=== PATIENT | male | born 1960 | race African-American/Black ===

== ENCOUNTER 2017-12-09 17:33 | Inpatient (IN) | payer MEDICAID ==
[~2017-12-09] VITALS: Ht 182.9 cm; Wt 123.8 kg
[2017-12-09] VITALS (17 sets, daily range): BP systolic 48–113; BP diastolic 23–91
[~2017-12-09 17:33] MED LIST: SODIUM BICARBONATE 7.5% 0.9 MEQ/ML 50ML SYR IV ONE
[2017-12-09] MEDS ORDERED: INSULIN LISPRO 100 UNITS/ML SUBCUT ONE (17:47)
[2017-12-09] MEDS ORDERED: PROPOFOL 10MG/ML 100ML 100 ML IV SCH (18:15)
[2017-12-09] MEDS ORDERED: INSULIN REGULAR (HUMULIN R) UD 100 UNITS/ML SYR IV ONE (18:30)
[2017-12-09] MEDS ORDERED: SODIUM CHLORIDE 0.9% 1000ML BAG (SEPSIS BOLUS) IV ONE (18:30)
[2017-12-09] MEDS ORDERED: SODIUM BICARBONATE 8.4% 1 MEQ/ML 50ML SYR IV ONE (18:30)
[2017-12-09 18:33] LABS: HEMATOCRIT. 57.1 % (42.0-52.0); HEMOGLOBIN. 16.3 g/dL (14.0-18.0); MEAN CORPUSCULAR HEMOGLOBIN 31.2 pg (28.0-32.0); MEAN CORPUSCULAR VOLUME 109.5 fL (80.0-94.0); MEAN PLATELET VOLUME 10.8 fl (7.4-10.4); PLATELET 228 x1000/uL (130-400); RED BLOOD CELL COUNT 5.21 mill/uL (4.7-6.1); RED CELL DISTRIBUTION WIDTH 14.1 % (11.6-14.6)
[2017-12-09 18:35] LABS: CLARITY URINE CLEAR (CLEAR); COLOR URINE YELLOW (YELLOW); KETONES URINE NEGATIVE (NEGATIVE); LEUKOCYTE ESTERASE URINE NEGATIVE (NEGATIVE); NITRITE URINE POSITIVE (NEGATIVE); OCCULT BLOOD URINE 3+ (NEGATIVE); PROTEIN URINE TRACE (NEGATIVE); SPECIFIC GRAVITY URINE 1.031 (1.005-1.030); UROBILINOGEN URINE 0.2 E.U./dL (0.2-1.0)
[2017-12-09 18:37] LABS: CHLORIDE 65 mEq/L (98-107)
[2017-12-09 18:41] LABS: ETHANOL BLOOD < 10 mg/dL
[2017-12-09 18:49] LABS: BETA HYDROXYBUTYRATE 0.7 mMol/L (0.0-0.3)
[2017-12-09 18:56] LABS: OPIATES URINE SCREEN NEGATIVE (NEGATIVE); PLATELET ESTIMATE NORMAL
[2017-12-09 18:57] LABS: CANNABINOID URINE SCREEN NEGATIVE (NEGATIVE); PHENCYCLIDINE URINE SCREEN NEGATIVE (NEGATIVE)
[2017-12-09 18:58] LABS: *AMPHETAMINES SCREEN URINE NEGATIVE (NEGATIVE); *BARBITURATES SCREEN URINE NEGATIVE (NEGATIVE)
[2017-12-09 18:59] LABS: *COCAINE SCREEN URINE NEGATIVE (NEGATIVE)
[2017-12-09 19:00] LABS: METHADONE URINE SCREEN NEGATIVE (NEGATIVE)
[2017-12-09] MEDS ORDERED: INSULIN REGULAR (DRIP) 100 UNITS in SODIUM CHLORIDE 0.9% 100 ML IV ONE (19:00)
[2017-12-09] MEDS ORDERED: ZIPRASIDONE MESYLATE 20MG/VIAL IM ONE (19:00)
[2017-12-09] MEDS ORDERED: LORAZEPAM 2MG/ML CPJ IV ONE (19:00)
[2017-12-09 19:03] LABS: *BENZODIAZEPINES SCREEN URINE NEGATIVE (NEGATIVE)
[2017-12-09] MEDS ORDERED: DOPAMINE 400MG PREMIX 250 ML IV ONE (19:04)
[2017-12-09] MEDS ORDERED: INSULIN REGULAR (DRIP) 100 UNITS in SODIUM CHLORIDE 0.9% 100 ML IV NR (19:04)
[2017-12-09] MEDS ORDERED: LORAZEPAM 2MG/ML CPJ ONE (19:05)
[2017-12-09 19:13] LABS: BG BASE EXCESS -15.4 mmol/L (-2.0-2.0); BG CARBOXYHEMOGLOBIN 0.9 % (0.5-1.5); BG DEOXYHEMOGLOBIN 3.9 % (0.0-5.0); BG FRACTION INSPIRED OXYGEN 100; BG HCO3 ACT 15.1 mmol/L (22.0-26.0); BG METHEMOGLOBIN 0.4 % (0.0-1.5); BG OXYHEMOGLOBIN 94.8 % (94.0-97.0); BG PH 7.064 (7.350-7.450); BG PO2 111.3 mmHg (75.0-100.0); BG SAMPLE SITE LEFT RADIAL; BG TIDAL VOLUME(mL) 450 mL; BG TOTAL HEMOGLOBIN 14.7 g/dL (12.0-18.0); BG VENT MODE VENT - A/C; BG VENT RATE 16 set
[2017-12-09] MEDS ORDERED: MIDAZOLAM HCL 50 MG in DEXTROSE 5% WATER 40 ML IV ONE (19:15)
[2017-12-09] MEDS ORDERED: PANTOPRAZOLE 80 MG in SODIUM CHLORIDE 0.9% 100 ML IV SCH (19:15)
[2017-12-09] MEDS ORDERED: PANTOPRAZOLE 80 MG in SODIUM CHLORIDE 0.9% 100 ML IV NR (19:15)
[2017-12-09] MEDS ORDERED: MIDAZOLAM HCL 50 MG in DEXTROSE 5% WATER 40 ML IV NR (19:15)
[2017-12-09] MEDS ORDERED: INSULIN REGULAR (HUMULIN R) 300UNITS/3ML IV NR (19:30)
[2017-12-09] MEDS ORDERED: LISI-604 MT (20:25)
[2017-12-09] MEDS ORDERED: DULO60CA44 MT (20:25)
[2017-12-09] MEDS ORDERED: MELO-106 MT (20:25)
[2017-12-09] MEDS ORDERED: CHLO25TA27 MT (20:25)
[2017-12-09] MEDS ORDERED: CYCL10TA7 MT (20:25)
[2017-12-09] MEDS ORDERED: DIAZ10TA4 MT (20:25)
[2017-12-09] MEDS ORDERED: DOXY100C2 MT (20:25)
[2017-12-09] MEDS ORDERED: GABA-290 MT (20:25)
[2017-12-09] MEDS ORDERED: PROPOFOL 10MG/ML 100ML 100 ML IV PRN (23:00)
[2017-12-09] MEDS: PHENYLEPHRINE 80 MG in DEXT 5% WATER 492 ML IV PRN (23:01)
[2017-12-09] MEDS ORDERED: DEXTROSE 50% WATER 50ML SYRINGE IV PRN ×2 (23:15)
[2017-12-09] MEDS ORDERED: INSULIN REGULAR (DRIP) 100 UNITS in SODIUM CHLORIDE 0.9% 99 ML IV PRN (23:15)
[2017-12-09] MEDS: NOREPINEPHRINE 32 MG in DEXT 5% WATER 468 ML IV PRN (23:28)
[2017-12-09] MEDS: BLOOD SUGAR DIAGNOSTIC STRIP TEST SCH (23:34)
[2017-12-09] MEDS: SODIUM CHLORIDE 0.9% 1,000 ML IV SCH (23:35)
[2017-12-10] VITALS (102 sets, daily range): BP systolic 41–213; BP diastolic 21–58
[2017-12-10] MEDS: BLOOD SUGAR DIAGNOSTIC STRIP TEST SCH ×23 (00:32→22:19)
[2017-12-10] MEDS: INSULIN REGULAR (DRIP) 100 UNITS in SODIUM CHLORIDE 0.9% 100 ML IV SCH ×4 (00:41→17:01)
[2017-12-10] MEDS ORDERED: SODIUM CHLORIDE 0.9% 1,000 ML IV ONE (01:30)
[2017-12-10] MEDS: VASOPRESSIN 10 UNIT in SODIUM CHLORIDE 0.9% 99.5 ML IV PRN ×5 (02:05→20:07)
[2017-12-10] MEDS: PANTOPRAZOLE 80 MG in SODIUM CHLORIDE 0.9% 100 ML IV SCH ×2 (04:01→13:37)
[2017-12-10] MEDS: DOPAMINE 400MG PREMIX 250 ML IV PRN ×2 (05:14→06:36)
[2017-12-10] MEDS: SODIUM CHLORIDE 0.9% 1,000 ML IV SCH ×3 (05:50→19:51)
[2017-12-10 06:13] LABS: BASOPHILS % 0.4 % (0.0-2.0); EOSINOPHILS % 0.3 % (0.0-5.0); HEMATOCRIT. 49.2 % (42.0-52.0); HEMOGLOBIN. 16.5 g/dL (14.0-18.0); LYMPHOCYTES % 16.2 % (20.0-50.0); MEAN CORPUSCULAR HEMOGLOBIN 31.9 pg (28.0-32.0); MEAN CORPUSCULAR VOLUME 95.2 fL (80.0-94.0); MONOCYTES % 6.8 % (2.0-8.0); NEUTROPHILS % 76.3 % (40.0-76.0); RED BLOOD CELL COUNT 5.17 mill/uL (4.7-6.1); RED CELL DISTRIBUTION WIDTH 13.4 % (11.6-14.6)
[2017-12-10] MEDS: PHENYLEPHRINE 80 MG in DEXT 5% WATER 492 ML IV PRN ×3 (06:25→21:55)
[2017-12-10] MEDS: DOPAMINE 800MG PREMIX 250 ML IV PRN ×6 (07:51→22:47)
[2017-12-10 08:14] LABS: BG BASE EXCESS -18.7 mmol/L (-2.0-2.0); BG DEOXYHEMOGLOBIN 10.9 % (0.0-5.0); BG METHEMOGLOBIN 0.4 % (0.0-1.5); BG OXYGEN SATURATION 88.9 % (92.0-98.5); BG OXYHEMOGLOBIN 87.7 % (94.0-97.0); BG PCO2 39.2 mmHg (35.0-45.0); BG PH 7.064 (7.350-7.450); BG PO2 62.1 mmHg (75.0-100.0); BG SAMPLE SITE RIGHT RADIAL; BG TIDAL VOLUME(mL) 500 mL; BG TOTAL HEMOGLOBIN 15.4 g/dL (12.0-18.0); BG VENT MODE VENT - A/C; BG VENT RATE 18 set
[2017-12-10] MEDS ORDERED: SODIUM BICARBONATE 8.4% 1 MEQ/ML 50ML SYR IV NR ×3 (08:30→13:15)
[2017-12-10 11:23] LABS: PLATELET 152 x1000/uL (130-400)
[2017-12-10] MEDS ORDERED: IPRATROPIUM/ALBUTEROL 0.5-3(2.5)MG/3ML NEB HHN PRN (11:45)
[2017-12-10 12:35] LABS: BG CARBOXYHEMOGLOBIN 0.6 % (0.5-1.5); BG DEOXYHEMOGLOBIN 12.2 % (0.0-5.0); BG HCO3 ACT 15.7 mmol/L (22.0-26.0); BG METHEMOGLOBIN 0.2 % (0.0-1.5); BG PH 7.106 (7.350-7.450); BG PO2 55.6 mmHg (75.0-100.0); BG SAMPLE SITE RIGHT BRACHIAL; BG TIDAL VOLUME(mL) 500 mL; BG TOTAL HEMOGLOBIN 15.5 g/dL (12.0-18.0); BG VENT MODE VENT - A/C; BG VENT RATE 26 set
[2017-12-10] MEDS: IPRATROPIUM BROMIDE (0.02%) 0.5MG/2.5ML NEB HHN SCH ×2 (12:39→16:32)
[2017-12-10] MEDS: PIPERACILLIN/TAZOBACTAM 2.25 G in DEXTROSE 5% WATER 50 ML IV SCH ×2 (14:07→22:06)
[2017-12-10] MEDS ORDERED: VANCOMYCIN 2,000 MG in DEXT 5% WATER 500 ML IV NR (15:00)
[2017-12-10] MEDS: NOREPINEPHRINE 32 MG in DEXT 5% WATER 468 ML IV PRN (15:39)
[2017-12-11] VITALS: BP 47/24
[2017-12-11] MEDS: BLOOD SUGAR DIAGNOSTIC STRIP TEST SCH ×3 (00:05→01:35)
[2017-12-11] MEDS: PANTOPRAZOLE 80 MG in SODIUM CHLORIDE 0.9% 100 ML IV SCH (00:05)
[2017-12-11 00:15] VITALS: BP 47/24
[2017-12-11 00:30] VITALS: BP 46/24
[2017-12-11 00:45] VITALS: BP 43/24
[2017-12-11] MEDS: IPRATROPIUM BROMIDE (0.02%) 0.5MG/2.5ML NEB HHN SCH (00:58)
[2017-12-11] MEDS: VASOPRESSIN 10 UNIT in SODIUM CHLORIDE 0.9% 99.5 ML IV PRN (01:08)
[2017-12-11] MEDS: DOPAMINE 800MG PREMIX 250 ML IV PRN (01:11)
[2017-12-11] MEDS: INSULIN REGULAR (DRIP) 100 UNITS in SODIUM CHLORIDE 0.9% 100 ML IV SCH (01:40)
[2017-12-11] MEDS ORDERED: CALCIUM CHLORIDE 1GM/10ML SYR IV ONE (02:00)
[2017-12-11] MEDS ORDERED: EPINEPHRINE 0.1MG/ML (1:10,000) 10ML SYR ONE ×2 (02:00)
[2017-12-11] MEDS ORDERED: SODIUM BICARBONATE 7.5% 0.9 MEQ/ML 50ML SYR IV ONE (02:00)
== END 2017-12-11 02:07 | disposition expired | DRG 52 ==
LOC: ER 17:46 → MICUNO 19:06 → EDBD 19:06 → EDBEDREQ 19:10 → EDBEDREQTM 19:10 → ENRESERV 21:16
PROVIDERS: ADMIT Hospitalist; ATTEND Hospitalist
PROC: 5A1945Z Respiratory Ventilation, 24-96 Consecutive Hours (ICD-10-PCS; principal; 2017-12-09)
PROC: 0BH17EZ Insertion of Endotracheal Airway into Trachea, Via Natural or Artificial Opening (ICD-10-PCS; 2017-12-09)
DX: G93.40 Encephalopathy, unspecified (principal); J96.00 Acute respiratory failure, unspecified whether with hypoxia or hypercapnia; R57.9 Shock, unspecified; E11.10 Type 2 diabetes mellitus with ketoacidosis without coma; E72.51 Non-ketotic hyperglycinemia; N17.9 Acute kidney failure, unspecified; E87.0 Hyperosmolality and hypernatremia; E87.1 Hypo-osmolality and hyponatremia; E86.0 Dehydration; E78.1 Pure hyperglyceridemia; D72.829 Elevated white blood cell count, unspecified; D72.810 Lymphocytopenia; D50.9 Iron deficiency anemia, unspecified; E87.5 Hyperkalemia; G40.89 Other seizures; I10 Essential (primary) hypertension; Z79.899 Other long term (current) drug therapy
CPT/HCPCS: 31500; 36415; 36556; 36600; 51702; 71045; 80048; 80053; 80305; 81003; 82010; 82375; 82805; 82962; 83036; 83605; 84478; 85025; 87040; 87070; 87077; 87086; 87186; 93005; 94002; 94003; 94640; 94660; 96365; 96375; 96376; 99291; C9113; G0482; J1265; J1815; J2060; J2250; J2370; J2543; J2704; J3370; J3490; J7030; J7050; J7060